=== PATIENT | male | born 1950 | race Caucasian/White ===

== ENCOUNTER 2022-04-22 17:06 | Emergency (ER) | payer MEDICARE ==
[2022-04-22] MEDS ORDERED: Sodium Chloride 0.9% 1000 ML 1,000 ML IV STA (17:22)
[2022-04-22] MEDS ORDERED: Zofran 4 MG/2 ML VIAL IV ONE (17:22)
[2022-04-22] MEDS ORDERED: Zofran 4 MG/2 ML VIAL ONE (17:43)
[2022-04-22] MEDS ORDERED: Sodium Chloride 0.9% 1000 ML 1,000 ML ONE (17:43)
[2022-04-22 17:49] LABS: Absolute Neutrophil Ct (ANC) 7.68 x10^3/uL (1.4-6.9); Basophil (Absolute #) 0.04 x10^3/uL (0-0.4); Eosinophil % 0.3 % (0.00-5.0); Eosinophil (Absolute #) 0.03 x10^3/uL (0-0.5); Hematocrit 42.8 % (42-50); Hemoglobin 14.6 g/dL (12.5-18.0); Lymphocytes % 16.3 % (24.0-44.0); Mean Cell Volume 88.6 fL (78-100); Mean Corpuscular Hemoglobin 30.2 pg (26-32); Mean Corpuscular Hgb Concent. 34.1 g/dL (32-36); Mean Platelet Volume 9.4 fL (7.5-11.0); Monocyte (Absolute #) 0.94 x10^3/uL (0.0-1.3); Neutrophil % 73.7 % (36.0-66.0); Platelet Count 185 x10^3/uL (150-450); Red Blood Count 4.83 x10^6/uL (4.1-5.6); White Blood Count 10.4 x10^3/uL (4.0-10.5)
--- NOTE | 2022-04-22 17:57 | ERPHSYRPT ---
- History of Present Illness Time Seen by Provider: 04/22/22 17:12 Source: patient, EMS Exam Limitations: no limitations Patient Subjective Stated Complaint: moving outdoor stuff from barn to trailor. became nauseated and tripped over some stuff and fell. just felt weak and light headed Triage Nursing Assessment: patient is alert and oriented. brought via stretcher per ems. nausea, vomiting, light headed and just overall not feeling well, weakn ess. tripped and fell over something in the yard and dinged left elbow and left hip. Physician History: 72 years old male with history of hyperlipidemia, diabetes mellitus, GERD was moving stuff outside and has been doing it for few hours, tripped on something and fell on left hip. Did not hit his head. No loss of consciousness. Started to feel dizzy lightheaded with nausea and vomited 3-4 times none bilious none projectile without hematemesis. No abdominal pain. Denies having chest pain palpitations or shortness of breath before or after the episode of dizziness. Feels much better after fluids by EMS. No focal numbness tingling or weakness. No difficulty speech or visual disturbance. Patient reports having similar symptoms in the past with working outside in the hot and is prone to get dehydrated. He is feeling weak fatigued tired and dehydrated. Timing/Duration: hour(s) (1), sudden, improved Severity: moderate Associated Symptoms: nausea, vomiting, headaches, weakness, No abdominal pain, No shortness of breath, No heartburn, No diaphoresis, No cough, No chills, No chest pain, No loss of appetite, No syncope Allergies/Adverse Reactions: No Known Drug Allergies Allergy (Unverified 04/22/22 17:45) Home Medications: Atorvastatin Calcium [Lipitor 20MG Tablet] 20 mg PO DAILY 04/22/22 [History] Duloxetine HCl 30 mg [Cymbalta 30 MG Capsule] 60 mg PO DAILY 04/22/22 [History] Empagliflozin/Metformin HCl [Synjardy 12.5-1,000 mg Tablet] 1 each PO DAILY 04/22/22 [History] Fexofenadine HCl [Diana Allergy] 180 mg PO DAILY 04/22/22 [History] Glimepiride 1 mg PO DAILY 04/22/22 [History] PANTOPRAZOLE 40 mg Tablet [Protonix 40MG Tablet] 40 mg PO DAILY 04/22/22 [History] Hx Tetanus, Diphtheria Vaccination/Date Given: Yes Hx Influenza Vaccination/Date Given: No Hx Pneumococcal Vaccination/Date Given: No Immunizations Up to Date: Yes Travel Risk - International Travel Have you traveled outside of the country in past 3 weeks: No - Coronavirus Screening Symptoms: Vomiting/Diarrhea Close contact with a COVID-19 positive Pt in past 14-21 Days: No - Vaccine Status Have you recieved a Covid-19 vaccination: Yes Dandy Operator: Moderna - Vaccination Dates Date of 2cond Vaccination (if applicable): 12/22/20 - Review of Systems Constitutional: Fatigue, Weakness Eyes: No Symptoms Ears, Nose, & Throat: No Symptoms Respiratory: No Symptoms Cardiac: No Symptoms Abdominal/Gastrointestinal: Nausea, Vomiting Genitourinary Symptoms: No Symptoms Musculoskeletal: Myalgias Skin: No Symptoms Neurological: No Symptoms Psychological: No Symptoms Endocrine: No Symptoms Hematologic/Lymphatic: No Symptoms Immunological/Allergic: No Symptoms - Past Medical History Neurological History: Peripheral Neuropathy ENT History: Cataracts Cardiac History: High Cholesterol Respiratory History: No Pertinent History Endocrine Medical History: Diabetes Type II Musculoskeletal History: Arthritis GI Medical History: No Pertinent History History: No Pertinent History Psycho-Social History: No Pertinent History Male Reproductive Disorders: No Pertinent History - Past Surgical History Past Surgical History: Yes Neuro Surgical History: No Pertinent History Cardiac: No Pertinent History Respiratory: No Pertinent History Gastrointestinal: No Pertinent History Genitourinary: No Pertinent History Musculoskeletal: No Pertinent History Male Surgical History: No Pertinent History Other Surgical History: skin cancer removed, kidney stones, tonsilectomy - Social History Smoking Status: Never smoker Exposure to second hand smoke: Yes (as a child) Drug Use: none Patient Lives Alone: No (lives with spouse) - Nursing Vital Signs Nursing Vital Signs: Initial Vital Signs Temperature 96.8 F 04/22/22 17:08 Pulse Rate 78 04/22/22 17:08 Respiratory Rate 18 04/22/22 17:08 Blood Pressure 142/85 04/22/22 17:08 O2 Sat by Pulse Oximetry 100 04/22/22 17:08 Pain Scale Pain Intensity 0 - Physical Exam General Appearance: no apparent distress, alert Eye Exam: PERRL/EOMI Ears, Nose, Throat Exam: normal ENT inspection, TMs normal, pharynx normal, moist mucous membranes Neck Exam: normal inspection, non-tender, supple, full range of motion, No meningismus, No limited range of motion Respiratory Exam: normal breath sounds, lungs clear Cardiovascular Exam: regular rate/rhythm, normal heart sounds Gastrointestinal/Abdomen Exam: soft, normal bowel sounds, No tenderness Back Exam: normal inspection, normal range of motion, No CVA tenderness Extremity Exam: normal inspection, normal range of motion, pelvis stable Neurologic Exam: alert, oriented x 3, cooperative, container filler II-XII nml as tested, nml cerebellar function, sensation nml, No normal mood/affect (Anxious), No motor deficits Skin Exam: normal color SpO2 Interpretation: normal SpO2: 100 O2 Delivery: Room Air Ordered Tests: Active Orders 24 hr Category Date Time Status EKG-ER Only STAT Care 04/22/22 17:22 Active IV Insertion STAT Care 04/22/22 17:22 Active NPO (ED) STAT Care 04/22/22 17:22 Active CHEST 1 VIEW (PORTABLE) Stat Exams 04/22/22 17:25 Completed HIP UNI (2V) INCL PEL IF DONE Stat Exams 04/22/22 17:59 Completed CBC W DIFF Stat Lab 04/22/22 17:42 Completed CK-Creatinine Phosphokinase Stat Lab 04/22/22 17:42 Completed CMP Stat Lab 04/22/22 17:42 Completed LIPASE Stat Lab 04/22/22 17:42 Completed Lactic Acid Stat Lab 04/22/22 17:32 Completed Lactic Acid Stat Lab 04/22/22 19:39 Received TROPONIN Q4H Lab 04/22/22 17:42 Completed TROPONIN Q4H Lab 04/22/22 21:30 Ordered TROPONIN Q4H Lab 04/23/22 01:30 Ordered Medication Summary Discontinued Medications Generic Name Dose Route Start Last Admin Trade Name Freq PRN Reason Stop Dose Admin Sodium Chloride 1,000 mls @ 999 mls/hr 04/22/22 17:22 04/22/22 18:46 Sodium Chloride 0.9% 1000 Ml IV 04/22/22 18:22 Infused .Q1H1M STA Infusion Sodium Chloride Confirm 04/22/22 17:43 Sodium Chloride 0.9% 1000 Ml Administered 04/22/22 17:44 Dose 1,000 mls @ ud .ROUTE .STK-MED ONE Ondansetron HCl 4 mg 04/22/22 17:22 04/22/22 17:45 Ondansetron Hcl 4 Mg/2 Ml Vial IV 04/22/22 17:23 4 mg STAT ONE Administration Ondansetron HCl Confirm 04/22/22 17:43 Ondansetron Hcl 4 Mg/2 Ml Vial Administered 04/22/22 17:44 Dose 4 mg .ROUTE .STK-MED ONE Lab/Rad Data: Laboratory Result Diagrams 04/22/22 17:42 04/22/22 17:42 Laboratory Results 04/22/22 04/22/22 04/22/22 Range/Units 17:42 17:42 17:42 WBC 10.4 (4.0-10.5) x10^3/uL RBC 4.83 (4.1-5.6) x10^6/uL Hgb 14.6 (12.5-18.0) g/dL Hct 42.8 (42-50) % MCV 88.6 (78-100) fL MCH 30.2 (26-32) pg MCHC 34.1 (32-36) g/dL RDW 12.0 (11.5-14.0) % Plt Count 185 (150-450) x10^3/uL MPV 9.4 (7.5-11.0) fL Gran % 73.7 H (36.0-66.0) % Immature Gran % (Auto) 0.3 (0.00-0.4) % Nucleat RBC Rel Count 0.0 (0.00-0.1) % Eos # (Auto) 0.03 (0-0.5) x10^3/uL Immature Gran # (Auto) 0.03 (0.00-0.03) x10^3u/L Absolute Lymphs (auto) 1.70 (1.0-4.6) x10^3/uL Absolute Monos (auto) 0.94 (0.0-1.3) x10^3/uL Absolute Nucleated RBC 0.00 (0.00-0.01) x10^3u/L Lymphocytes % 16.3 L (24.0-44.0) % Monocytes % 9.0 (0.0-12.0) % Eosinophils % 0.3 (0.00-5.0) % Basophils % 0.4 (0.0-0.4) % Absolute Granulocytes 7.68 H (1.4-6.9) x10^3/uL Basophils # 0.04 (0-0.4) x10^3/uL Sodium 135 L (137-145) mmol/L Potassium 4.8 (3.5-5.1) mmol/L Chloride 100 (98-107) mmol/L Carbon Dioxide 23 (22-30) mmol/L Anion Gap 16.8 H (5-15) MEQ/L BUN 20 (9-20) mg/dL Creatinine 1.81 H (0.66-1.25) mg/dL Estimated GFR 39.3 ML/MIN Glucose 130 H (74-106) mg/dL Lactic Acid (0.4-2.0) Calcium 9.9 (8.4-10.2) mg/dL Total Bilirubin 0.90 (0.2-1.3) mg/dL AST 25 (17-59) U/L ALT 13 (0-50) U/L Alkaline Phosphatase 107 (38-126) U/L Creatine Kinase 116 (55-170) U/L Troponin I < 0.012 (0.000-0.034) ng/mL Serum Total Protein 7.3 (6.3-8.2) g/dL Albumin 4.4 (3.5-5.0) g/dL Lipase 68 (23-300) U/L /03/08 Range/Units 17:32 WBC (4.0-10.5) x10^3/uL RBC (4.1-5.6) x10^6/uL Hgb (12.5-18.0) g/dL Hct (42-50) % MCV (78-100) fL MCH (26-32) pg MCHC (32-36) g/dL RDW (11.5-14.0) % Plt Count (150-450) x10^3/uL MPV (7.5-11.0) fL Gran % (36.0-66.0) % Immature Gran % (Auto) (0.00-0.4) % Nucleat RBC Rel Count (0.00-0.1) % Eos # (Auto) (0-0.5) x10^3/uL Immature Gran # (Auto) (0.00-0.03) x10^3u/L Absolute Lymphs (auto) (1.0-4.6) x10^3/uL Absolute Monos (auto) (0.0-1.3) x10^3/uL Absolute Nucleated RBC (0.00-0.01) x10^3u/L Lymphocytes % (24.0-44.0) % Monocytes % (0.0-12.0) % Eosinophils % (0.00-5.0) % Basophils % (0.0-0.4) % Absolute Granulocytes (1.4-6.9) x10^3/uL Basophils # (0-0.4) x10^3/uL Sodium (137-145) mmol/L Potassium (3.5-5.1) mmol/L Chloride (98-107) mmol/L Carbon Dioxide (22-30) mmol/L Anion Gap (5-15) MEQ/L BUN (9-20) mg/dL Creatinine (0.66-1.25) mg/dL Estimated GFR ML/MIN Glucose (74-106) mg/dL Lactic Acid 2.6 H (0.4-2.0) Calcium (8.4-10.2) mg/dL Total Bilirubin (0.2-1.3) mg/dL AST (17-59) U/L ALT (0-50) U/L Alkaline Phosphatase (38-126) U/L Creatine Kinase (55-170) U/L Troponin I (0.000-0.034) ng/mL Serum Total Protein (6.3-8.2) g/dL Albumin (3.5-5.0) g/dL Lipase (23-300) U/L - Progress Progress: improved Progress Note: 04/22/22 19:51 72 years old male who is evaluated for generalized weakness/near syncope after he was doing some exertion outside and was hot. Patient has nonfocal neuro exam. Given 2 L fluids, on reevaluation feeling better. X-rays left hip negative. Chest x-ray negative for any acute cardiopulmonary findings, official report for x-rays are pending. Work-up showed normal white count coming chemistry profile showed creatinine of 1.8. Lactate of 2.6 and normal CK level. Elevated lactate is probably secondary to dehydration. No previous creatinine available for comparison. Patient is offered observation admission and recheck of renal functions in the morning but he does not want to stay in the hospital at all and wants to go home. He would follow-up with his primary care dR. Garduno early next week. I have advised him to drink plenty of fluids to keep up with hydration and avoiding NSAIDs. Counseled pt/family regarding: lab results, diagnosis, need for follow-up, rad results - Departure Departure Disposition: Home Clinical Impression: Syncope, near, Dehydration, DOUG (acute kidney injury) Condition: Stable Critical Care Time: No Referrals: PB GARDUNO MD [Primary Care Provider] - Follow up/PCP as directed (In 2 days for reevaluation and recheck of kidney functions) Instructions: Near Fainting (DC), Dehydration, Adult (DC) Additional Instructions: Drink plenty of fluids to keep yourself well-hydrated. Take Tylenol as needed. Do not take ibuprofen/Aleve or any other NSAIDs. Follow-up with your primary care for reevaluation in 2 days for recheck of kidney functions.
[2022-04-22 18:03] LABS: ALBUMIN 4.4 g/dL (3.5-5.0); ANION GAP 16.8 MEQ/L (5-15); BILIRUBIN,TOTAL 0.9 mg/dL (0.2-1.3); Calcium 9.9 mg/dL (8.4-10.2); Creatinine 1 1.81 mg/dL (0.66-1.25); EST GLOMERULAR FILTRATION RATE 39.3 ML/MIN; Potassium 4.8 mmol/L (3.5-5.1); Total Protein 7.3 g/dL (6.3-8.2)
[2022-04-22 18:31] VITALS: BP 152/89
[2022-04-22 19:25] VITALS: PULSE 74
--- NOTE | 2022-04-22 19:46 | XRAY ---
Indication: Pain following fall. Comparison: None AP pelvis and 2 view left hip demonstrates osteopenia and mild lower lumbar degenerative spondylosis. No other bony, articular, or soft tissue abnormalities.
--- NOTE | 2022-04-22 19:46 | XRAY ---
Indication: Weakness. Comparison: None Portable chest hyperinflated with minimal left base subsegmental atelectasis/scarring. Remaining heart and lungs unremarkable. Bony thorax intact with mild osteopenia and degenerative changes. Impression: Nonacute hyperinflated chest with chronic features.
[2022-04-22 19:56] VITALS: O2SAT 100
== END 2022-04-22 20:11 | disposition home or self-care (01) ==
LOC: ED 17:06
DX: R55 Syncope and collapse (principal); E86.0 Dehydration; N17.9 Acute kidney failure, unspecified; M25.552 Pain in left hip; W01.0XXA Fall on same level from slipping, tripping and stumbling without subsequent striking against object, initial encounter; R42 Dizziness and giddiness; R11.2 Nausea with vomiting, unspecified; R53.1 Weakness; E78.5 Hyperlipidemia, unspecified; E11.9 Type 2 diabetes mellitus without complications; Z79.84 Long term (current) use of oral hypoglycemic drugs; Z79.899 Other long term (current) drug therapy
CPT/HCPCS: 36415; 71045; 73502; 80053; 82550; 83605; 83690; 84484; 85025; 93005; 96374; 99284; J2405